=== PATIENT | female | born 1955 | race Caucasian/White ===

== ENCOUNTER 2018-02-15 19:17 | Emergency (ER) | payer OTHER ==
[~2018-02-15] VITALS: Ht 157.5 cm; Wt 61.7 kg
[2018-02-15] MEDS ORDERED: COZAAR50 MG (19:49)
[2018-02-16] MEDS ORDERED: PROTONIX40 MG PO (00:24)
== END 2018-02-16 01:08 | disposition home or self-care (01) ==
LOC: ER 19:17
DX: T62.8X4A Toxic effect of other specified noxious substances eaten as food, undetermined, initial encounter (principal); E86.0 Dehydration; R11.10 Vomiting, unspecified; Y92.89 Other specified places as the place of occurrence of the external cause

== ENCOUNTER 2018-02-18 11:20 | Emergency (ER) | payer OTHER ==
[~2018-02-18] VITALS: Ht 157.5 cm; Wt 61.7 kg
[~2018-02-18 11:20] MED LIST: COZAAR50 MG; PROTONIX40 MG PO
[2018-02-18] MEDS ORDERED: SYNTHROID50 MCG PO (12:21)
[2018-02-18] MEDS ORDERED: ZANTAC150 MG PO (13:57)
[2018-02-18] MEDS ORDERED: INTESTINEX680 M1 PO (13:57)
[2018-02-18] MEDS ORDERED: VISTARIL25 MG PO (14:48)
== END 2018-02-18 14:55 | disposition home or self-care (01) ==
LOC: ER 11:20
DX: R63.0 Anorexia (principal)